=== PATIENT | female | born 1960 | race Caucasian/White ===

== ENCOUNTER 2017-01-30 10:18 | Emergency (ER) | payer OTHER ==
--- NOTE | 2017-01-30 11:22 | ER PHYSICIAN DOCUMENTATION ---
Physician Documentation [facility] Name:Evelyn Camarena Age:56 yrs Sex:Female :1960 Arrival Date:01/30/2017 Time:10:18 Bed6 Private MD: Joby Marx Disposition: 01/30/17 11:01 Discharged to Home/Self Care. Impression: Rotator Cuff Injury - : Acute , Left, Shoulder Contusion. - Condition is Fair. - Discharge Instructions: CONTUSION, Upper Extremity, ROTATOR CUFF TEAR, SHOULDER IMMOBILIZER. - Medical Reconciliation form form. - Follow up: Private Physician; When: 2 - 3 days; Reason: Recheck today's complaints, Continuance of care. - Problem is new. - Symptoms are unchanged. - Notes: Ice and elevate for 2 - 3 days. Do passive ROM exercises each day to prevent a frozen shoulder. Take Tylenol 650mg by mouth every 6 hours if needed for pain. Avoid ALL NSAID's since you have only one kidney. Maintain in the Shoulder Immobilizer until seen by your Orthopedic Surgeon in 2 - 3 days. HPI: 01/30 10:33 This 56 yrs old Female presents to ER via Private Vehicle with complaints of cd Shoulder Injury - LEFT. 10:33 The patient or guardian complains of contusion, decreased range of motion, pain, that cd is acute. left shoulder and left elbow. Context: The problem was sustained outdoors, resulted from a fall, while walking her dog....the leash wrapped up around her legs causing her to fall on her outstretched arm. She reports she has had a Rotator Cuff Tear in her right shoulder in the past that responded to PT., The patient experiences decreased range of motion, The patient reports no obvious deformity. Onset: The symptom(s)/episode began/occurred acutely, just prior to arrival. Associated signs and symptoms: Pertinent negatives: abdominal pain, chest pain, diaphoresis, dyspnea, neck pain, shortness of breath, tingling. Severity of symptoms: At their worst the symptoms were moderate, in the emergency department the symptoms are unchanged. Historical: - Allergies: Amoxicillin; Lasix; - Home Meds: 1. None - PMHx: None; - PSHx: None; - Ebola Screening: : Patient negative for fever greater than or equal to 101.5 degrees Fahrenheit, and additional compatible Ebola Virus Disease symptoms. Patient denies exposure to infectious person. Patient denies travel to an Ebola-affected area in the 21 days before illness onset. No symptoms or risks identified at this time. . - Immunization history: Flu Vaccine None. - Social history: Smoking status: Patient states was never smoker of tobacco. Patient/guardian denies using alcohol, street drugs, IV drugs, marijuana. ROS: 10:59 ENT: Negative for injury, pain, epistaxis and discharge. cd Neck: Negative for injury, pain, stiffness and swelling. Cardiovascular: Negative for chest pain, palpitations, edema and pleuritic pain. Respiratory: Negative for shortness of breath, dyspnea on exertion, cough, sputum production, wheezing, hemoptysis and pleuritic chest pain. Abdomen/GI: Negative for abdominal pain, nausea, vomiting, diarrhea, constipation, distension, melena, hematochezia and hematemesis. Back: Negative for injury, pain or muscle spasms. : Negative for injury, bleeding, discharge, dysuria, frequency, urgency and swelling. Skin: Negative for injury, rash, itching and discoloration. 10:59 Neuro: Negative for headache, weakness, numbness, tingling, and seizure. cd 10:59 Constitutional: Negative for chills, fever, poor PO intake. 10:59 MS/extremity: Positive for injury or acute deformity, decreased range of motion, pain, of the anterior aspect of left shoulder and left elbow, Negative for swelling. 10:59 All other systems are negative. Exam: Head/Face: Normocephalic, atraumatic. ENT: Nares patent. No nasal discharge, no septal abnormalities noted. Tympanic membranes are normal and external auditory canals are clear. Oropharynx with no redness, swelling, or masses, exudates, or evidence of obstruction, uvula midline. Mucous membranes moist. Neck: Trachea midline, no thyromegaly or masses palpated, and no cervical lymphadenopathy. Supple, full range of motion without nuchal rigidity, or vertebral point tenderness. No Meningismus. Chest/axilla: Normal chest wall appearance and motion. Nontender with no deformity. No lesions are appreciated. Cardiovascular: Regular rate and rhythm with a normal S1 and S2. No gallops, murmurs, or rubs. Normal PMI, no JVD. No pulse deficits. Respiratory: Lungs have equal breath sounds bilaterally, clear to auscultation and percussion. No rales, rhonchi or wheezes noted. No increased work of breathing, no retractions or nasal flaring. Abdomen/GI: Soft, non-tender, with normal bowel sounds. No distension or tympany. No guarding or rebound. No evidence of tenderness throughout. Back: No spinal tenderness. No costovertebral tenderness. Full range of motion. Skin: Warm, dry with normal turgor. Normal color with no rashes, no lesions, and no evidence of cellulitis. 10:59 Neuro: Awake and alert, GCS 15, oriented to person, place, time, and situation. cd Cranial nerves II-XII grossly intact. Motor strength 5/5 in all extremities. Sensory grossly intact. Cerebellar exam normal. Normal gait. 10:59 Constitutional: The patient appears alert, awake, anxious, obese, in obvious distress, moderately distressed. 10:59 Musculoskeletal/extremity: Extremities: grossly normal except: noted in the anterior aspect of left shoulder: decreased ROM, pain, noted in the left elbow: pain, ROM: the patient is contracted, Circulation is intact in all extremities. Sensation intact. 10:59 Skin: Exam negative for acute changes. Vital Signs: 10:36 BP 159 / 89; Pulse 89; Resp 18; Temp 97.9; Pulse Ox 93% on R/A; sc1 Frankie Coma Score: 10:59 Eye Response: spontaneous(4). Verbal Response: oriented(5). Motor Response: obeys cd commands(6). Total: 15. MDM: 10:28 Patient medically screened. cd 11:04 Differential diagnosis: Anterior dislocation without fracture, humeral head fracture, cd glenoid fracture, Rotator Cuff Tear. Data reviewed: vital signs, nurses notes, old medical records, radiologic studies, and as a result, I will discharge patient. Data interpreted: Pulse oximetry: on room air is 93 %. Interpretation: normal. Counseling: I had a detailed discussion with the patient and/or guardian regarding: the historical points, exam findings, and any diagnostic results supporting the discharge/admit diagnosis, radiology results, the need for outpatient follow up, for a referral to a specialist, a orthopedic surgeon, to return to the emergency department if symptoms worsen or persist or if there are any questions or concerns that arise at home. Response to treatment: the patient's symptoms have mildly improved after treatment, and as a result, I will discharge patient. 01/30 15:11 Order name: SHOULDER; 2V+ [place] [id number] [facility] 01/30 15:12 Order name: ELBOW; [address] [place] [id number] [facility] 01/30 10:29 Order name: Ice Packs; Complete Time: 10:53 cd Dispensed Medications: No medications were administered Signatures: Sujata Mckenna RN RN sc1 Joby Gagnon MD MD cd
--- NOTE | 2017-01-30 11:22 | ER NURSING DOCUMENTATION ---
Nurse's Notes [facility] Name:Evelyn Camarena Age:56 yrs Sex:Female :1960 Arrival Date:01/30/2017 Time:10:18 Bed6 Private MD: Diagnosis:Rotator Cuff Injury-: Acute , Left;Shoulder Contusion Presentation: 01/30 10:24 Presenting complaint: Patient states: got tangled up in her dog's leash and fell sc1 injuring left shoulder and landed on both knees. Transition of care: Home. 10:24 Acuity: ABBIE 4 sc1 10:24 Method Of Arrival: Private Vehicle ca1 Triage Assessment: 10:34 General: Appears distressed, well developed, well nourished, well groomed, Behavior is sc1 cooperative, pleasant. Pain: Complains of pain in left shoulder and bilateral knees. Musculoskeletal: Circulation, motion, and sensation intact Capillary refill < 3 seconds Range of motion limited in left shoulder. Historical: - Allergies: Amoxicillin; Lasix; - Home Meds: 1. None - PMHx: None; - PSHx: None; - Ebola Screening: : Patient negative for fever greater than or equal to 101.5 degrees Fahrenheit, and additional compatible Ebola Virus Disease symptoms. Patient denies exposure to infectious person. Patient denies travel to an Ebola-affected area in the 21 days before illness onset. No symptoms or risks identified at this time. . - Immunization history: Flu Vaccine None. - Social history: Smoking status: Patient states was never smoker of tobacco. Patient/guardian denies using alcohol, street drugs, IV drugs, marijuana. Screenin:36 Infectious Disease Risk None. Abuse screen: Denies threats or abuse. Nutritional sc1 screening: No deficits noted. Vital Signs: 10:36 BP 159 / 89; Pulse 89; Resp 18; Temp 97.9; Pulse Ox 93% on R/A; sc1 Frankie Coma Score: 10:59 Eye Response: spontaneous(4). Verbal Response: oriented(5). Motor Response: obeys cd commands(6). Total: 15. ED Course: 10:22 Patient arrived in ED. ama 10:24 Sujata Mckenna RN is Primary Nurse. sc1 10:28 Triage completed. sc1 10:28 Joby Gagnon MD is Attending Physician. cd 10:36 Notified ED Physician of patient's arrival and chief complaint. Dr. Gagnon notified. sc1 Allergy Band Placed Arm band placed on Bed in low position Call Light in Reach Gowned HOB Elevated. X-ray done. X-ray ordered. Affected limb iced. 10:39 Port Xray Completed. hz 11:20 Sling & swathe to left arm. sc1 Administered Medications: No medications were administered Outcome: 11:01 Discharge ordered by . cd 11:20 Discharged to home ambulatory. ca1 11:20 Condition: stable 11:20 Discharge instructions given to patient, Instructed on discharge instructions, follow up and referral plans. [facility]o [facility] Demonstrated understanding of instructions. 11:21 Patient left the ED. ca1 01/31 14:55 Discharge F/U Call: Unable to reach: left voicemail: mk2 Signatures: Sujata Mckenna, RN RN sc1 Joby Gagnon MD MD cd Kruger, Meg RN RN mk2 Harmeet Rivera, Shante Bhatti
--- NOTE | 2017-01-30 12:57 | RADIOLOGY REPORT ---
Two limited views of the left elbow without prior films for comparison demonstrate no displaced fracture or dislocation. The visualized joints appear unremarkable. IMPRESSION: No displaced injury is identified. If clinically indicated, further evaluation and/or follow-up may be of benefit. MTDD
--- NOTE | 2017-01-30 12:57 | RADIOLOGY REPORT ---
Three views of the left shoulder were obtained. No prior study is available for comparison. Identified only on a single view is a curvilinear lucency at the inferior aspect of the scapula. Appearance is most consistent with overlying soft tissue densities. Fracture is not absolutely excluded. No other bony abnormality is identified. The joints appear unremarkable. No dislocation is identified. The humerus and clavicle appear unremarkable. IMPRESSION: Probable negative left shoulder as described. Fracture of the inferior aspect of the scapula is not absolutely excluded. If clinically indicated, further evaluation and/or follow-up may be of benefit. MTDD
== END 2017-01-30 11:22 | disposition home or self-care (01) ==
LOC: ER 10:18
DX: S40.012A Contusion of left shoulder, initial encounter (principal); S49.82XA Other specified injuries of left shoulder and upper arm, initial encounter; M25.522 Pain in left elbow; W54.8XXA Other contact with dog, initial encounter; W18.39XA Other fall on same level, initial encounter; Y92.89 Other specified places as the place of occurrence of the external cause; Y93.K1 Activity, walking an animal
CPT/HCPCS: 99283